=== PATIENT | female | born 1965 | race Asian ===

== ENCOUNTER 2016-12-12 13:36 | Outpatient (CLI) | payer OTHER | END 2016-12-12 21:28 | disposition home or self-care (01) | LOC: LAB 13:36 | DX: L03.116 Cellulitis of left lower limb (principal) | CPT/HCPCS: 87070; 87077; 87186; 87205 ==

== ENCOUNTER 2018-02-13 16:43 | Outpatient (CLI) | payer OTHER ==
[2018-02-13 17:14] LABS: PLATELET COUNT 412 K/uL (152-353)
[2018-02-13 17:15] LABS: POTASSIUM 3.8 mmol/L (3.6-5.2); SODIUM 140 mmol/L (136-145)
== END 2018-02-13 19:00 | disposition home or self-care (01) ==
LOC: LABW 16:43
PROVIDERS: Family Medicine
DX: N93.8 Other specified abnormal uterine and vaginal bleeding (principal); R07.89 Other chest pain; R94.6 Abnormal results of thyroid function studies
CPT/HCPCS: 36415; 80053; 82550; 83735; 84439; 84443; 84484; 85027; 93005

== ENCOUNTER 2018-05-28 08:42 | Outpatient (CLI) | payer OTHER | END 2018-05-28 19:08 | disposition home or self-care (01) | LOC: CT 08:42 | DX: C54.1 Malignant neoplasm of endometrium (principal) | CPT/HCPCS: 36415; 82565; 84520; Q9963 ==

== ENCOUNTER 2018-06-01 13:07 | Outpatient (CLI) | payer OTHER ==
[2018-06-01 13:28] LABS: PLATELET COUNT 387 K/uL (152-353)
[2018-06-01 13:36] LABS: POTASSIUM 3.9 mmol/L (3.6-5.2)
== END 2018-06-01 19:50 | disposition home or self-care (01) ==
LOC: LABW 13:07
PROVIDERS: Family Medicine
DX: R10.84 Generalized abdominal pain (principal); K80.80 Other cholelithiasis without obstruction
CPT/HCPCS: 36415; 80053; 82150; 83690; 85027

== ENCOUNTER 2019-01-08 09:37 | Outpatient (CLI) | payer OTHER | END 2019-01-08 22:38 | disposition home or self-care (01) | LOC: CT 09:37 | DX: E27.8 Other specified disorders of adrenal gland (principal) | CPT/HCPCS: 36415; 82565; 84520; Q9963 ==

== ENCOUNTER 2019-10-20 04:55 | Outpatient (CLI) | payer OTHER ==
[2019-10-20 05:16] LABS: PLATELET COUNT 342 K/uL (152-353)
[2019-10-20 05:37] LABS: POTASSIUM 3.6 mmol/L (3.6-5.2)
== END 2019-10-20 20:07 | disposition home or self-care (01) ==
LOC: LABW 04:55
PROVIDERS: Family Medicine
DX: E13.65 Other specified diabetes mellitus with hyperglycemia (principal); E55.9 Vitamin D deficiency, unspecified; E53.9 Vitamin B deficiency, unspecified; I10 Essential (primary) hypertension; R53.83 Other fatigue
CPT/HCPCS: 36415; 80053; 81000; 82306; 82607; 84443; 85027

== ENCOUNTER 2019-10-21 15:14 | Outpatient (CLI) | payer OTHER | END 2019-10-21 19:17 | disposition home or self-care (01) | LOC: RAD 15:14 | DX: R05 Cough (principal) ==

== ENCOUNTER 2019-12-22 10:11 | Outpatient (CLI) | payer OTHER | END 2019-12-22 21:10 | disposition home or self-care (01) | LOC: CT 10:11 | DX: R22.41 Localized swelling, mass and lump, right lower limb (principal); Z12.31 Encounter for screening mammogram for malignant neoplasm of breast | CPT/HCPCS: 36415; 82565; 84520; Q9963 ==

== ENCOUNTER 2020-05-02 10:00 | Outpatient (CLI) | payer OTHER ==
[2020-05-02 10:21] LABS: PLATELET COUNT 334 K/uL (152-353)
[2020-05-02 10:27] LABS: POTASSIUM 3.8 mmol/L (3.6-5.2)
== END 2020-05-02 19:09 | disposition home or self-care (01) ==
LOC: LABW 10:00
PROVIDERS: Nurse Practitioner Family
DX: L03.115 Cellulitis of right lower limb (principal)
CPT/HCPCS: 36415; 80053; 83036; 85027

== ENCOUNTER 2020-10-22 16:47 | Outpatient (CLI) | payer OTHER | END 2020-10-22 19:02 | disposition home or self-care (01) | LOC: RAD 16:47 | PROVIDERS: ATTEND Nurse Practitioner Family | DX: Z11.1 Encounter for screening for respiratory tuberculosis (principal) ==

== ENCOUNTER 2020-11-29 18:38 | Outpatient (CLI) | payer OTHER ==
[2020-11-29 20:57] LABS: PLATELET COUNT 247 K/uL (152-353)
[2020-11-29 21:24] LABS: POTASSIUM 4.4 mmol/L (3.6-5.2)
== END 2020-11-29 20:30 | disposition home or self-care (01) ==
LOC: RAD 18:38
PROVIDERS: ATTEND Family Medicine
DX: U07.1 COVID-19 (principal)
CPT/HCPCS: 36415; 80053; 82728; 85027; 85379; 86140; 87635; U0003

== ENCOUNTER 2021-06-01 13:19 | Outpatient (CLI) | payer OTHER ==
[2021-06-01 14:13] LABS: PLATELET COUNT 302 K/uL (152-353)
== END 2021-06-01 23:20 | disposition home or self-care (01) ==
LOC: LABW 13:19
PROVIDERS: ATTEND Nurse Practitioner Family
DX: M25.561 Pain in right knee (principal); I89.0 Lymphedema, not elsewhere classified; E11.65 Type 2 diabetes mellitus with hyperglycemia; E55.9 Vitamin D deficiency, unspecified; E53.8 Deficiency of other specified B group vitamins; E78.2 Mixed hyperlipidemia
CPT/HCPCS: 36415; 80053; 80061; 81000; 82306; 82607; 83036; 85027

== ENCOUNTER 2021-09-21 15:14 | Outpatient (CLI) | payer OTHER | END 2021-09-21 19:29 | disposition home or self-care (01) | LOC: RAD 15:14 | PROVIDERS: ATTEND Nurse Practitioner Family | DX: M25.571 Pain in right ankle and joints of right foot (principal) ==

== ENCOUNTER 2022-02-22 08:13 | Emergency (ER) | payer OTHER ==
[~2022-02-22] VITALS: Ht 165.1 cm; Wt 158.8 kg
[2022-02-22 08:18] VITALS: TEMP 97.5
[2022-02-22 08:59] LABS: POTASSIUM 4.1 mmol/L (3.6-5.2)
[2022-02-22 09:07] LABS: PLATELET COUNT 260 K/uL (152-353)
[2022-02-22 11:24] VITALS: BP 173/90
== END 2022-02-22 11:26 | disposition home or self-care (01) ==
LOC: ED 08:13
PROVIDERS: Emergency Medicine
DX: E11.649 Type 2 diabetes mellitus with hypoglycemia without coma (principal); Z79.4 Long term (current) use of insulin
CPT/HCPCS: 80053; 81000; 82947; 84484; 85027; 85610; 93005; 99283

== ENCOUNTER 2022-02-22 15:55 | Emergency (ER) | payer OTHER ==
[~2022-02-22] VITALS: Ht 165.1 cm; Wt 158.8 kg
[2022-02-22 21:35] VITALS: BP 168/87; TEMP 98.3
== END 2022-02-22 21:35 | disposition home or self-care (01) ==
LOC: ED 15:55
DX: R06.02 Shortness of breath (principal)
CPT/HCPCS: 36600; 82805; 82947; 85379; 99284; Q9963

== ENCOUNTER 2022-02-28 12:49 | Outpatient (CLI) | payer OTHER | END 2022-02-28 20:19 | disposition home or self-care (01) | LOC: US 12:49 | PROVIDERS: ATTEND Nurse Practitioner Primary Care | DX: R60.0 Localized edema (principal) ==

== ENCOUNTER 2022-04-26 16:50 | Outpatient (CLI) | payer OTHER | END 2022-04-26 19:31 | disposition home or self-care (01) | LOC: RAD 16:50 | PROVIDERS: ATTEND Nurse Practitioner Primary Care | DX: R76.11 Nonspecific reaction to tuberculin skin test without active tuberculosis (principal) ==

== ENCOUNTER 2022-12-04 03:26 | Emergency (ER) | payer OTHER ==
[~2022-12-04] VITALS: Ht 162.6 cm; Wt 176.9 kg
[2022-12-04 04:52] LABS: PLATELET COUNT 322 K/uL (152-353)
[2022-12-04 05:35] VITALS: BP 160/64; TEMP 100.1
== END 2022-12-04 05:50 | disposition home or self-care (01) ==
LOC: ED 03:26
PROVIDERS: Emergency Medicine
DX: U07.1 COVID-19 (principal); I89.0 Lymphedema, not elsewhere classified
CPT/HCPCS: 36415; 80048; 83880; 85027; 87502; 87635; 99283; U0003

== ENCOUNTER 2022-12-31 13:24 | Outpatient (CLI) | payer OTHER | END 2022-12-31 19:22 | disposition home or self-care (01) | LOC: CT 13:24 | PROVIDERS: ATTEND Internal Medicine Hematology & Oncology | DX: I26.99 Other pulmonary embolism without acute cor pulmonale (principal); R79.89 Other specified abnormal findings of blood chemistry; I82.403 Acute embolism and thrombosis of unspecified deep veins of lower extremity, bilateral ==

== ENCOUNTER 2023-01-17 13:39 | Outpatient (CLI) | payer OTHER ==
[~2023-01-17 13:39] MED LIST: ELIQUIS5 MG PO; LEVO0.0218 PO; MOBIC15 MG PO; NOVOLIN R100 UNIT/M IM; VALS160T2 PO
== END 2023-01-17 21:23 | disposition home or self-care (01) ==
LOC: RAD 13:39
PROVIDERS: ATTEND Nurse Practitioner Family
DX: R05.9 Cough, unspecified (principal)